=== PATIENT | male | born 1935 | race Caucasian/White ===

== ENCOUNTER 2016-08-15 09:00 | Outpatient (RCR) | payer MEDICARE, BC ==
[~2016-08-15 09:00] MED LIST: 00186-0370-20 IH; ALBUTEROL0.83 MG/ML IH; BIPAP; COUMADIN 2MG2 MG/TAB PO; COUMADIN5 M1 PO; COUMADIN5 MG PO; DAPSONE 100MG100 MG PO; DOXYCYCLINE 10100 MG PO; FLECAINIDE150 MG PO; FLONASEALLERGY NS; INCRUSE EL62.5 MCG/A IH; LOPRESSOR 225 MG/TAB PO; MULTAQ400 MG PO; NASONEX SPRAY17 GM NS; OMNICEF 300MG300 MG PO; PACERONE200 MG PO; PAIN RELIEF AD200 MG PO; PAXIL10 MG PO; PAXIL20 MG PO; PLAQUENIL 200M200 MG PO; PREDFORTE10ML; PREDNISONE10 MG PO; PROAIR HFA0.09 MG/AC IH; RT SPIRIVA18 MCG IH; SPIRIVA18 MCG IH; SYNTHROID0.088 MG/T PO; TOPROL XL 50MG50 MG PO; TOPROL XL25 MG PO; TYLENOL COLD MU; ULTRAM 50MG TAB50 MG PO; UROXATRAL10 M1 PO
[2016-09-09] MEDS ORDERED: NEXIUM 40MG40 MG PO (11:01)
[2016-09-09] MEDS ORDERED: OSCAL 500 TAB500 MG PO (11:03)
[2016-09-09] MEDS ORDERED: LEXAPRO 10MG10 MG PO (11:05)
[2016-09-09] MEDS ORDERED: LASIX 40MG TABL40 MG PO (11:05)
== END 2016-09-27 | disposition home or self-care (01) ==
LOC: MKS.ESL.PT
DX: R53.81 Other malaise (principal); Z87.09 Personal history of other diseases of the respiratory system
CPT/HCPCS: G8978-GP; G8979-GP

== ENCOUNTER 2016-09-09 09:44 | Emergency (ER) | payer MEDICARE, BC ==
[2009-07-22 16:28] VITALS: BP 107/82
[~2016-09-09] VITALS: Ht 180.3 cm; Wt 81.8 kg
[2016-09-09 10:40] LABS: HEMATOCRIT 38.2 % (42.0-52.0); HEMOGLOBIN 12.4 g/dl (13.5-18.0); MEAN CELL VOLUME 111 fl (80.0-100.0); MEAN CORPUSCULAR HEMOGLOBIN 36 pg (27.0-31.0); MEAN CORPUSCULAR HGB CONC 33 g/dl (33.0-37.0); PLATELET COUNT 234 K/mm3 (130-400); RED BLOOD COUNT 3.45 M/mm3 (4.20-5.60); REDCELL DISTRIBUTION WIDTH-CV 13.8 % (11.5-14.5); WHITE BLOOD COUNT 8.7 K/mm3 (4.8-10.8)
[2016-09-09 10:51] LABS: INR 2.1 (0.8-3.0); PROTHROMBIN TIME 24.3 SECONDS (9.7-12.8)
[2016-09-09 10:52] LABS: ADD PATHOLOGY DIFF REVIEW NO
[2016-09-09 10:54] LABS: PARTIAL THROMBOPLASTIN TIME 28.5 SECONDS (26.0-37.0)
[2016-09-09 10:59] LABS: ADJUSTED CALCIUM 9.4 mg/dL (8.4-10.2); ALBUMIN 3.8 gm/dL (3.5-5.0); CALCIUM 9.2 mg/dL (8.4-10.2); CREATININE, serum 1.17 mg/dL (0.66-1.25); POTASSIUM 3.8 mmol/L (3.4-5.0); TOTAL PROTEIN 6.3 gm/dL (6.4-8.2)
[2016-09-09] MEDS ORDERED: NEXIUM 40MG40 MG PO (11:01)
[2016-09-09 11:02] LABS: PH 6 (5-8); SQUAMOUS EPITHELIAL None Seen /hpf; URINE APPEARANCE Clear; URINE BACTERIA None Seen /hpf; URINE BILIRUBIN Negative (NEGATIVE); URINE BLOOD 1+ (NEGATIVE); URINE COLOR Straw; URINE GLUCOSE Negative (NEGATIVE); URINE KETONE Negative (NEGATIVE); URINE RBC None Seen /hpf; URINE UROBILINOGEN Negative (NEGATIVE); URINE WBC None Seen /hpf
[2016-09-09] MEDS ORDERED: OSCAL 500 TAB500 MG PO (11:03)
[2016-09-09] MEDS ORDERED: LEXAPRO 10MG10 MG PO (11:05)
[2016-09-09] MEDS ORDERED: LASIX 40MG TABL40 MG PO (11:05)
[2016-09-09 11:40] LABS: BAND 8 % (0-10); BASOPHIL 1 % (0-2); EOSINOPHIL 1 % (0-4); NEUTROPHILS 65 % (42.0-75.2); TOTAL CELLS COUNTED 100
[2016-09-09 11:40] LABS: INFLUENZA B NEGATIVE
[2016-09-09 11:41] LABS: ANISOCYTOSIS 1+; PLATELET ESTIMATE NORMAL (NORMAL); POLYCHROMASIA 1+
[2016-09-09 14:43] LABS: TROPONIN-I 0.027 ng/mL (0.000-0.034)
[2016-09-09 16:20] VITALS: TEMP 98.1
[2016-09-09 19:45] VITALS: BP 122/93; PULSE 130
== END 2016-09-09 20:10 | disposition short-term general hospital (02) ==
LOC: COL.ER 09:44
PROVIDERS: Emergency Medicine
DX: J16.8 Pneumonia due to other specified infectious organisms (principal); I48.0 Paroxysmal atrial fibrillation; R09.02 Hypoxemia; I27.2 Other secondary pulmonary hypertension; J44.9 Chronic obstructive pulmonary disease, unspecified; R94.39 Abnormal result of other cardiovascular function study; J98.6 Disorders of diaphragm; J90 Pleural effusion, not elsewhere classified; R94.31 Abnormal electrocardiogram [ECG] [EKG]; Z87.891 Personal history of nicotine dependence
CPT/HCPCS: J0692; J1160; J1956; J2930; J7030; Q9967

== ENCOUNTER → 2016-10-18 | Outpatient (CLI) | payer MEDICARE, BC ==
[~2016-10-18] MED LIST changes: +ALDACTONE 25MG25 M1 PO; +AMOXICILLIN 8751 TAB PO; +BETAPACE 80MG80 MG PO; +CALCIUM CARB W/1 TA1 PO; +COUMADIN 1MG1 MG/TAB PO; +LASIX 20MG TABL20 MG PO; +LASIX 40MG TABL40 MG PO; +LEXAPRO 10MG10 MG PO; +MAG-OX 400400 MG/TAB PO; +NEXIUM 40MG40 MG PO; +OSCAL 500 TAB500 MG PO; +SYSTANE 0.4%-0.1 SOL OU; +VENTOLIN0.09 MG IH
== END ==
LOC: COL.VAS 13:04
DX: R60.0 Localized edema (principal)

== ENCOUNTER 2016-10-30 14:38 | Emergency (ER) | payer MEDICARE, BC ==
[2009-07-22 16:28] VITALS: BP 107/82
[~2016-10-30] VITALS: Ht 180.3 cm; Wt 78.6 kg
[~2016-10-30 14:38] MED LIST changes: -ALDACTONE 25MG25 M1 PO; -AMOXICILLIN 8751 TAB PO; -BETAPACE 80MG80 MG PO; -CALCIUM CARB W/1 TA1 PO; -COUMADIN 1MG1 MG/TAB PO; -LASIX 20MG TABL20 MG PO; -MAG-OX 400400 MG/TAB PO; -SYSTANE 0.4%-0.1 SOL OU; -VENTOLIN0.09 MG IH
[2016-10-30 14:46] VITALS: TEMP 97.7
[2016-10-30 15:55] LABS: MEAN CELL VOLUME 100 fl (80.0-100.0); MEAN CORPUSCULAR HGB CONC 32 g/dl (33.0-37.0); MEAN PLATELET VOLUME 8.9 fl (7.4-10.4); PLATELET COUNT 379 K/mm3 (130-400); RED BLOOD COUNT 2.98 M/mm3 (4.20-5.60); REDCELL DISTRIBUTION WIDTH-CV 13.8 % (11.5-14.5); WHITE BLOOD COUNT 8.8 K/mm3 (4.8-10.8)
[2016-10-30 15:56] LABS: HEMATOCRIT 29.8 % (42.0-52.0); HEMOGLOBIN 9.4 g/dl (13.5-18.0); MEAN CORPUSCULAR HEMOGLOBIN 32 pg (27.0-31.0)
[2016-10-30 15:57] LABS: ADD PATHOLOGY DIFF REVIEW NO
[2016-10-30 16:02] LABS: PROTHROMBIN TIME 36.5 SECONDS (9.7-12.8)
[2016-10-30 16:05] LABS: PARTIAL THROMBOPLASTIN TIME 37.8 SECONDS (26.0-37.0)
[2016-10-30 16:10] LABS: INR 3.2 (0.8-3.0)
[2016-10-30 16:16] LABS: ADJUSTED CALCIUM 9.3 mg/dL (8.4-10.2); C-REACTIVE PROTEIN 6.8 mg/dL (0.0-0.9); CALCIUM 8.5 mg/dL (8.4-10.2); CREATININE, serum 1.1 mg/dL (0.66-1.25); POTASSIUM 4.2 mmol/L (3.4-5.0); TOTAL PROTEIN 5.5 gm/dL (6.4-8.2)
[2016-10-30 16:29] LABS: BAND 8 % (0-10); EOSINOPHIL 4 % (0-4); NEUTROPHILS 62 % (42.0-75.2); TOTAL CELLS COUNTED 100
[2016-10-30 16:30] LABS: PLATELET ESTIMATE NORMAL (NORMAL)
[2016-10-30] MEDS ORDERED: AMOXICILLIN 8751 TAB PO (16:35)
[2016-10-30] MEDS ORDERED: MAG-OX 400400 MG/TAB PO (16:36)
[2016-10-30] MEDS ORDERED: BETAPACE 80MG80 MG PO (16:36)
[2016-10-30] MEDS ORDERED: ALDACTONE 25MG25 M1 PO (16:37)
[2016-10-30] MEDS ORDERED: VENTOLIN0.09 MG IH (16:39)
[2016-10-30] MEDS ORDERED: CALCIUM CARB W/1 TA1 PO (16:39)
[2016-10-30] MEDS ORDERED: SYSTANE 0.4%-0.1 SOL OU (16:41)
[2016-10-30] MEDS ORDERED: COUMADIN 1MG1 MG/TAB PO (16:43)
[2016-10-30 17:09] VITALS: BP 112/70; PULSE 54
[2016-10-30 17:24] LABS: TROPONIN-I 0.15 ng/mL (0.000-0.034)
== END 2016-10-30 17:28 | disposition home or self-care (01) ==
LOC: COL.ER 14:38
PROVIDERS: Emergency Medicine
DX: I48.91 Unspecified atrial fibrillation (principal); R06.00 Dyspnea, unspecified; R00.1 Bradycardia, unspecified; I10 Essential (primary) hypertension; J44.9 Chronic obstructive pulmonary disease, unspecified

== ENCOUNTER → 2017-01-01 | Outpatient (CLI) | payer MEDICARE, BC ==
[~2017-01-01] MED LIST changes: +ALDACTONE 25MG25 M1 PO; +AMOXICILLIN 8751 TAB PO; +BETAPACE 80MG80 MG PO; +CALCIUM CARB W/1 TA1 PO; +COUMADIN 1MG1 MG/TAB PO; +LASIX 20MG TABL20 MG PO; +MAG-OX 400400 MG/TAB PO; +SYSTANE 0.4%-0.1 SOL OU; +VENTOLIN0.09 MG IH
== END ==
LOC: COL.VAS 10:09
DX: I08.1 Rheumatic disorders of both mitral and tricuspid valves (principal); I28.8 Other diseases of pulmonary vessels; I27.2 Other secondary pulmonary hypertension

== ENCOUNTER → 2017-01-08 | Outpatient (CLI) | payer MEDICARE, BC | LOC: COL.RAD 09:55 | DX: J44.9 Chronic obstructive pulmonary disease, unspecified (principal); J90 Pleural effusion, not elsewhere classified | CPT/HCPCS: A9539; A9540 ==

== ENCOUNTER 2017-01-17 09:33 | Emergency (ER) | payer MEDICARE, BC ==
[2009-07-22 16:28] VITALS: BP 107/82
[~2017-01-17] VITALS: Ht 180.3 cm; Wt 73.6 kg
[~2017-01-17 09:33] MED LIST changes: -LASIX 20MG TABL20 MG PO
[2017-01-17 09:41] VITALS: TEMP 98
[2017-01-17 10:18] LABS: MEAN CELL VOLUME 83 fl (80.0-100.0); MEAN CORPUSCULAR HGB CONC 31 g/dl (33.0-37.0); MEAN PLATELET VOLUME 8.5 fl (7.4-10.4); PLATELET COUNT 479 K/mm3 (130-400); RED BLOOD COUNT 3.84 M/mm3 (4.20-5.60); REDCELL DISTRIBUTION WIDTH-CV 16.3 % (11.5-14.5); WHITE BLOOD COUNT 13.9 K/mm3 (4.8-10.8)
[2017-01-17 10:19] LABS: ADD PATHOLOGY DIFF REVIEW NO; HEMOGLOBIN 9.9 g/dl (13.5-18.0); MEAN CORPUSCULAR HEMOGLOBIN 26 pg (27.0-31.0)
[2017-01-17 10:29] LABS: ADJUSTED CALCIUM 9.5 mg/dL (8.4-10.2); ALBUMIN 3.4 gm/dL (3.5-5.0); BILIRUBIN,TOTAL 1.2 mg/dL (0.0-1.0); CREATININE, serum 0.96 mg/dL (0.66-1.25); POTASSIUM 4.2 mmol/L (3.4-5.0); TOTAL PROTEIN 6.4 gm/dL (6.4-8.2)
[2017-01-17 10:47] LABS: BAND 6 % (0-10); EOSINOPHIL 2 % (0-4); NEUTROPHILS 70 % (42.0-75.2); TOTAL CELLS COUNTED 100
[2017-01-17 10:48] LABS: ANISOCYTOSIS 1+
[2017-01-17 10:49] LABS: PLATELET ESTIMATE INCREASED (NORMAL)
[2017-01-17 10:53] LABS: ARTERIAL BLD GAS O2 SATURATION 94.5 % (92-100); ARTERIAL BLD GAS TCO2 CT 22.1; ARTERIAL BLOOD GAS BASE EXCESS -1.5 (-2-2); ARTERIAL BLOOD GAS HCO3 21.2 meq/L (22-26); ARTERIAL BLOOD GAS PO2 68.6 mmHg (80-100); ARTERIAL BLOOD GAS pH 7.48 (7.35-7.45); OXYHEMOGLOBIN 93.9 %
[2017-01-17 10:54] LABS: ALLEN TEST YES; ALLENS TEST RESULT PASS; ATS? YES
[2017-01-17] MEDS ORDERED: ALBUTEROL0.83 MG/ML IH (11:02)
[2017-01-17] MEDS ORDERED: NASONEX SPRAY17 GM NS (11:13)
[2017-01-17 19:07] VITALS: BP 112/61; PULSE 66
== END 2017-01-17 19:20 | disposition short-term general hospital (02) ==
LOC: COL.ER 09:33
PROVIDERS: Family Medicine
DX: J18.1 Lobar pneumonia, unspecified organism (principal); I50.1 Left ventricular failure, unspecified; J44.9 Chronic obstructive pulmonary disease, unspecified; I48.91 Unspecified atrial fibrillation; I27.2 Other secondary pulmonary hypertension; Z87.891 Personal history of nicotine dependence; Z79.01 Long term (current) use of anticoagulants; Z96.641 Presence of right artificial hip joint; Z98.890 Other specified postprocedural states
CPT/HCPCS: J0456; J0692; J2930; J7030; J7050

== ENCOUNTER 2017-03-22 09:29 | Emergency (ER) | payer MEDICARE, BC ==
[2009-07-22 16:28] VITALS: BP 107/82
[~2017-03-22] VITALS: Ht 180.3 cm; Wt 68.6 kg
[2017-03-22 09:42] VITALS: TEMP 97.9
[2017-03-22 11:30] LABS: BASO % 0.4 % (0.0-2.0); EOS # 0.4 (0.0-0.7); GRAN # 4.9 (1.4-6.5); GRAN % 64.3 % (42.2-75.2); LYMPH % 12.5 % (20.0-51.0); MEAN CELL VOLUME 85 fl (80.0-100.0); MEAN CORPUSCULAR HGB CONC 31 g/dl (33.0-37.0); MEAN PLATELET VOLUME 9.4 fl (7.4-10.4); MONO # 1.3 (0.1-0.6); MONO % 17.3 % (1.7-9.3); PLATELET COUNT 243 K/mm3 (130-400); RED BLOOD COUNT 4.31 M/mm3 (4.20-5.60); WHITE BLOOD COUNT 7.6 K/mm3 (4.8-10.8)
[2017-03-22 11:34] LABS: HEMATOCRIT 36.6 % (42.0-52.0); HEMOGLOBIN 11.3 g/dl (13.5-18.0); MEAN CORPUSCULAR HEMOGLOBIN 26 pg (27.0-31.0)
[2017-03-22 11:39] LABS: PROTHROMBIN TIME 23.2 SECONDS (9.7-12.8)
[2017-03-22 11:40] LABS: PARTIAL THROMBOPLASTIN TIME 32.3 SECONDS (26.0-37.0)
[2017-03-22 11:46] LABS: ADJUSTED CALCIUM 9.1 mg/dL (8.4-10.2); ALBUMIN 3.8 gm/dL (3.5-5.0); BILIRUBIN,TOTAL 0.6 mg/dL (0.0-1.0); C-REACTIVE PROTEIN 1.3 mg/dL (0.0-0.9); CALCIUM 8.9 mg/dL (8.4-10.2); CREATININE, serum 1.12 mg/dL (0.66-1.25); POTASSIUM 4.4 mmol/L (3.4-5.0); TOTAL PROTEIN 6.8 gm/dL (6.4-8.2)
[2017-03-22] MEDS ORDERED: DOXYCYCLINE 10100 MG PO (12:44)
[2017-03-22 12:45] LABS: ERYTHROCYTE SEDIMENTATION RATE 14 mm/hr (0-30)
[2017-03-22 13:25] VITALS: BP 124/80; PULSE 58
[2017-03-22] MEDS ORDERED: LASIX 20MG TABL20 MG PO (14:38)
[2017-03-22] MEDS ORDERED: INCRUSE EL62.5 MCG/A IH (14:45)
== END 2017-03-22 13:25 | disposition home or self-care (01) ==
LOC: COL.ER 09:29
PROVIDERS: Emergency Medicine
DX: L03.114 Cellulitis of left upper limb (principal); I48.91 Unspecified atrial fibrillation; F32.9 Major depressive disorder, single episode, unspecified; J44.9 Chronic obstructive pulmonary disease, unspecified; Z79.01 Long term (current) use of anticoagulants

== ENCOUNTER 2017-06-12 07:05 | Day surgery (SDC) | payer MEDICARE, BC ==
[2009-07-22 16:28] VITALS: BP 107/82
[~2017-06-12] VITALS: Ht 180.3 cm; Wt 70.9 kg
[~2017-06-12 07:05] MED LIST changes: +LASIX 20MG TABL20 MG PO
[2017-06-12] MEDS ORDERED: OXYGEN MC (07:36)
[2017-06-12 07:44] VITALS: BP 102/67; PULSE 54; TEMP 97.2
[2017-06-12 09:10] VITALS: BP 103/67; PULSE 54; TEMP 97.9
[2017-06-12 09:25] VITALS: BP 112/66; PULSE 52
[2017-06-12 09:40] VITALS: BP 116/54; PULSE 54
[2017-06-12 09:55] VITALS: BP 123/71; PULSE 54
== END 2017-06-12 10:10 | disposition home or self-care (01) ==
LOC: SDCO 07:05
DX: D12.2 Benign neoplasm of ascending colon (principal); D12.4 Benign neoplasm of descending colon; D12.5 Benign neoplasm of sigmoid colon; K57.30 Diverticulosis of large intestine without perforation or abscess without bleeding; K64.0 First degree hemorrhoids; J44.9 Chronic obstructive pulmonary disease, unspecified; I48.91 Unspecified atrial fibrillation; M19.90 Unspecified osteoarthritis, unspecified site; G47.33 Obstructive sleep apnea (adult) (pediatric); I27.20 Pulmonary hypertension, unspecified; E03.9 Hypothyroidism, unspecified; F32.9 Major depressive disorder, single episode, unspecified; Z87.891 Personal history of nicotine dependence
CPT/HCPCS: OP; J2250; J2704; J7120

== ENCOUNTER 2017-08-02 12:26 | Observation (INO) | payer MEDICARE, BC ==
[2017-08-02] VITALS (412 sets, daily range): BP systolic 94–102; BP diastolic 63–79; PULSE 68–130; TEMP 97.3–97.5; O2SAT 83–99
[~2017-08-02] VITALS: Ht 180.3 cm; Wt 69.8 kg
[~2017-08-02 12:26] MED LIST changes: +OXYGEN MC
[2017-08-02 13:19] LABS: CALCIUM 9.5 mg/dL (8.4-10.2); CREATININE, serum 1.46 mg/dL (0.66-1.25); MAGNESIUM 1.9 mg/dL (1.6-2.3); POTASSIUM 4.7 mmol/L (3.4-5.0)
[2017-08-02 16:32] LABS: BASO # 0.1 (0.0-0.2); BASO % 1.5 % (0.0-2.0); EOS # 0.3 (0.0-0.7); EOS % 3.8 % (0-4.0); GRAN % 59.3 % (42.2-75.2); HEMATOCRIT 38.9 % (42.0-52.0); HEMOGLOBIN 12.2 g/dl (13.5-18.0); LYMPH # 1.8 (1.2-3.4); LYMPH % 20.8 % (20.0-51.0); MEAN CELL VOLUME 87 fl (80.0-100.0); MEAN CORPUSCULAR HEMOGLOBIN 27 pg (27.0-31.0); MEAN CORPUSCULAR HGB CONC 31 g/dl (33.0-37.0); MEAN PLATELET VOLUME 10.4 fl (7.4-10.4); MONO # 1.2 (0.1-0.6); MONO % 14.5 % (1.7-9.3); PLATELET COUNT 297 K/mm3 (130-400); RED BLOOD COUNT 4.48 M/mm3 (4.20-5.60); WHITE BLOOD COUNT 8.5 K/mm3 (4.8-10.8)
[2017-08-02 16:49] LABS: TROPONIN-I 0.031 ng/mL (0.000-0.034)
[2017-08-02 16:50] LABS: PROTHROMBIN TIME 35.3 SECONDS (9.7-12.8)
[2017-08-02 17:08] LABS: TSH w REFLEX 0.568 uIU/mL (0.465-4.680)
[2017-08-03] VITALS (570 sets, daily range): BP systolic 89–109; BP diastolic 59–87; PULSE 62–109; TEMP 97.4–97.9; O2SAT 88–100
[2017-08-03 06:00] LABS: CALCIUM 8.9 mg/dL (8.4-10.2); CREATININE, serum 1.24 mg/dL (0.66-1.25); MAGNESIUM 1.9 mg/dL (1.6-2.3); POTASSIUM 4.6 mmol/L (3.4-5.0)
[2017-08-03 06:12] LABS: TROPONIN-I 0.025 ng/mL (0.000-0.034)
[2017-08-03] MEDS ORDERED: COUMADIN 3MG3 MG/TAB PO (11:38)
[2017-08-03] MEDS ORDERED: COUMADIN 2MG2 MG/TAB PO (11:38)
== END 2017-08-03 13:30 | disposition home or self-care (01) ==
LOC: ICU 12:26
PROVIDERS: Internal Medicine; Physician Assistant
DX: I48.0 Paroxysmal atrial fibrillation (principal); I48.92 Unspecified atrial flutter; C73 Malignant neoplasm of thyroid gland; E87.1 Hypo-osmolality and hyponatremia; J44.9 Chronic obstructive pulmonary disease, unspecified; G47.33 Obstructive sleep apnea (adult) (pediatric); I27.20 Pulmonary hypertension, unspecified; K21.9 Gastro-esophageal reflux disease without esophagitis; F32.9 Major depressive disorder, single episode, unspecified; J18.8 Other pneumonia, unspecified organism; Z79.01 Long term (current) use of anticoagulants; Z96.642 Presence of left artificial hip joint; Z82.49 Family history of ischemic heart disease and other diseases of the circulatory system
CPT/HCPCS: 99222-AI; G0378; G0379; J2250; J2704; J7030; J7050

== ENCOUNTER 2017-12-19 11:37 | Inpatient (IN) | payer MEDICARE, BC ==
[~2017-12-19] VITALS: Ht 180.3 cm; Wt 73.0 kg
[2017-12-19] VITALS (9 sets, daily range): BP systolic 120–155; BP diastolic 72–85; PULSE 59–71; TEMP 97.9–98.1
[~2017-12-19 11:37] MED LIST changes: +COUMADIN 3MG3 MG/TAB PO
[2017-12-19] MEDS ORDERED: COUMADIN 2MG2 MG/TAB PO (12:44)
[2017-12-19] MEDS ORDERED: COUMADIN 1MG1 MG/TAB PO (12:45)
[2017-12-19] MEDS ORDERED: SYSTANE BALANCE10 M1 OP (12:47)
[2017-12-19] MEDS ORDERED: OXYGEN MC (12:48)
[2017-12-19] MEDS ORDERED: VENTOLIN0.09 MG IH (12:49)
[2017-12-19] MEDS ORDERED: URECHOLINE 25MG25 MG PO (12:50)
[2017-12-19] MEDS ORDERED: 00186-0370-20 IH (12:51)
[2017-12-19] MEDS ORDERED: CALCIUM 600MG+D1 TAB PO (12:52)
[2017-12-19] MEDS ORDERED: FLONASEALLERGY NS (12:54)
[2017-12-19 15:56] LABS: ALBUMIN 3.7 gm/dL (3.5-5.0); CALCIUM 9.3 mg/dL (8.4-10.2); PHOSPHOROUS 3.1 mg/dL (2.5-4.5)
[2017-12-20 00:43] VITALS: BP 128/76; PULSE 82; TEMP 98.1
[2017-12-20 05:02] VITALS: BP 130/77; PULSE 73
[2017-12-20 06:51] LABS: ALBUMIN 3.3 gm/dL (3.5-5.0); CALCIUM 9.2 mg/dL (8.4-10.2); PHOSPHOROUS 3.9 mg/dL (2.5-4.5)
[2017-12-20 11:44] VITALS: BP 92/53; PULSE 71; TEMP 98.3
[2017-12-20 12:21] VITALS: BP 107/68; PULSE 73
[2017-12-20 16:16] LABS: ALBUMIN 3.3 gm/dL (3.5-5.0); CALCIUM 9.4 mg/dL (8.4-10.2)
[2017-12-20 16:46] VITALS: BP 119/60; PULSE 75; TEMP 98.2
== END 2017-12-20 19:01 | disposition home or self-care (01) | DRG 627 ==
LOC: INPTSU 11:37 → SURG 11:37
PROVIDERS: Otolaryngology
PROC: 0GTG0ZZ Resection of Left Thyroid Gland Lobe, Open Approach (ICD-10-PCS; principal; 2017-12-19 13:30)
DX: C73 Malignant neoplasm of thyroid gland (principal); J44.9 Chronic obstructive pulmonary disease, unspecified
CPT/HCPCS: J1100; J2370; J2405; J2704; J3010; J7120

== ENCOUNTER 2018-02-04 07:20 | Inpatient (IN) | payer MEDICARE, BC ==
[~2018-02-04] VITALS: Ht 180.3 cm; Wt 74.9 kg
[~2018-02-04 07:20] MED LIST changes: +CALCIUM 600MG+D1 TAB PO; +SYNTHROID0.1 MG/TAB PO; +SYSTANE BALANCE10 M1 OP; +URECHOLINE 25MG25 MG PO
[2018-02-04 07:53] LABS: INR 1.2 (0.8-3.0); PROTHROMBIN TIME 13.2 SECONDS (9.7-12.8)
[2018-02-04 07:55] LABS: ALANINE AMINOTRANSFERASE 30 U/L (21-72); ALBUMIN 3.9 gm/dL (3.5-5.0); ALKALINE PHOSPHATASE 78 U/L (50-136); ANION GAP 8 mmol/L (7-16); AST,SGOT 24 U/L (15-37); BILIRUBIN,TOTAL 0.6 mg/dL (0.0-1.0); BLOOD UREA NITROGEN 19 mg/dL (9-20); CALCIUM 8.8 mg/dL (8.4-10.2); CARBON DIOXIDE 27 mmol/L (22-30); CHLORIDE 95 mmol/L (98-107); CREATININE, serum 1.13 mg/dL (0.66-1.25); GLUCOSE 111 mg/dL (74-106); POTASSIUM 4.3 mmol/L (3.4-5.0); SODIUM 131 mmol/L (137-145); TOTAL PROTEIN 7.4 gm/dL (6.4-8.2)
[2018-02-04 08:08] LABS: TROPONIN-I < 0.012 ng/mL (0.000-0.034)
[2018-02-04 08:25] LABS: BAND 48 % (0-10); LYMPHOCYTE 15 % (20.0-51.0); NEUTROPHILS 29 % (42.0-75.2); PLATELET ESTIMATE NORMAL (NORMAL)
[2018-02-04 08:33] LABS: BASO # 0.1 (0.0-0.2); BASO % 0.6 % (0.0-2.0); EOS # 0.1 (0.0-0.7); EOS % 0.6 % (0-4.0); GRAN # 9.5 (1.4-6.5); GRAN % 76.8 % (42.2-75.2); HEMATOCRIT 38.5 % (42.0-52.0); HEMOGLOBIN 12.5 g/dl (13.5-18.0); LYMPH # 0.8 (1.2-3.4); LYMPH % 6.1 % (20.0-51.0); MEAN CELL VOLUME 85 fl (80.0-100.0); MEAN CORPUSCULAR HEMOGLOBIN 28 pg (27.0-31.0); MEAN CORPUSCULAR HGB CONC 33 g/dl (33.0-37.0); MEAN PLATELET VOLUME 9.8 fl (7.4-10.4); MONO # 1.9 (0.1-0.6); MONO % 15.5 % (1.7-9.3); PLATELET COUNT 291 K/mm3 (130-400); RED BLOOD COUNT 4.52 M/mm3 (4.20-5.60); REDCELL DISTRIBUTION WIDTH-CV 15.9 % (11.5-14.5)
[2018-02-04 16:06] VITALS: BP 153/76; PULSE 77; TEMP 99
[2018-02-04 19:56] VITALS: BP 150/86; PULSE 92; TEMP 101
[2018-02-04 20:55] VITALS: TEMP 98.6
[2018-02-05] VITALS (14 sets, daily range): BP systolic 89–158; BP diastolic 62–89; PULSE 54–144; TEMP 96.7–100.3; O2SAT 92–95
[2018-02-05 08:32] LABS: HEMOGLOBIN 11.5 g/dl (13.5-18.0); MEAN CELL VOLUME 85 fl (80.0-100.0); MEAN CORPUSCULAR HEMOGLOBIN 28 pg (27.0-31.0); MEAN CORPUSCULAR HGB CONC 33 g/dl (33.0-37.0); MEAN PLATELET VOLUME 10.1 fl (7.4-10.4); PLATELET COUNT 242 K/mm3 (130-400); RED BLOOD COUNT 4.16 M/mm3 (4.20-5.60); REDCELL DISTRIBUTION WIDTH-CV 16.1 % (11.5-14.5)
[2018-02-05 08:39] LABS: HEMATOCRIT 35.3 % (42.0-52.0); INR 1.2 (0.8-3.0); PROTHROMBIN TIME 13.7 SECONDS (9.7-12.8)
[2018-02-05 10:04] LABS: BAND 19 % (0-10); EOSINOPHIL 1 % (0-4); LYMPHOCYTE 13 % (20.0-51.0); NEUTROPHILS 63 % (42.0-75.2); PLATELET ESTIMATE NORMAL (NORMAL)
[2018-02-05 10:05] LABS: ANISOCYTOSIS 1+
[2018-02-06] VITALS (695 sets, daily range): BP systolic 87–129; BP diastolic 67–79; PULSE 56–129; TEMP 96.7–98.3; O2SAT 79–100
[2018-02-06 05:38] LABS: GRAN # 6.2 (1.4-6.5); GRAN % 76.4 % (42.2-75.2); HEMOGLOBIN 10.4 g/dl (13.5-18.0); LYMPH # 0.7 (1.2-3.4); MEAN CELL VOLUME 87 fl (80.0-100.0); MEAN CORPUSCULAR HEMOGLOBIN 28 pg (27.0-31.0); MEAN CORPUSCULAR HGB CONC 32 g/dl (33.0-37.0); MEAN PLATELET VOLUME 9.5 fl (7.4-10.4); MONO # 1.2 (0.1-0.6); MONO % 14.1 % (1.7-9.3); PLATELET COUNT 207 K/mm3 (130-400); RED BLOOD COUNT 3.78 M/mm3 (4.20-5.60); REDCELL DISTRIBUTION WIDTH-CV 16.6 % (11.5-14.5)
[2018-02-06 05:41] LABS: INR 1.2 (0.8-3.0); PROTHROMBIN TIME 14.1 SECONDS (9.7-12.8)
[2018-02-06 05:45] LABS: HEMATOCRIT 32.9 % (42.0-52.0)
[2018-02-06 05:51] LABS: CALCIUM 8.9 mg/dL (8.4-10.2); CREATININE, serum 1.09 mg/dL (0.66-1.25); POTASSIUM 4.6 mmol/L (3.4-5.0)
[2018-02-07 04:10] VITALS: BP 132/75; PULSE 60; TEMP 97.5
[2018-02-07 06:42] LABS: BASO % 0.2 % (0.0-2.0); GRAN # 8.8 (1.4-6.5); LYMPH # 0.8 (1.2-3.4); LYMPH % 7.2 % (20.0-51.0); MEAN CELL VOLUME 87 fl (80.0-100.0); MEAN CORPUSCULAR HEMOGLOBIN 28 pg (27.0-31.0); MEAN CORPUSCULAR HGB CONC 32 g/dl (33.0-37.0); MEAN PLATELET VOLUME 9.7 fl (7.4-10.4); MONO % 8.9 % (1.7-9.3); PLATELET COUNT 238 K/mm3 (130-400); RED BLOOD COUNT 3.63 M/mm3 (4.20-5.60); REDCELL DISTRIBUTION WIDTH-CV 16.5 % (11.5-14.5)
[2018-02-07 06:43] LABS: HEMATOCRIT 31.6 % (42.0-52.0)
[2018-02-07 06:53] LABS: CALCIUM 8.9 mg/dL (8.4-10.2); CREATININE, serum 0.98 mg/dL (0.66-1.25); POTASSIUM 4.7 mmol/L (3.4-5.0)
[2018-02-07 06:57] LABS: INR 1.6 (0.8-3.0); PROTHROMBIN TIME 17.9 SECONDS (9.7-12.8)
[2018-02-07 07:27] VITALS: BP 134/88; PULSE 66; TEMP 98.1
[2018-02-07 11:24] VITALS: BP 147/81; PULSE 59; TEMP 97.4
[2018-02-07] MEDS ORDERED: OMNICEF 300MG300 MG PO (12:14)
[2018-02-07] MEDS ORDERED: TUSS PO (12:17)
[2018-02-07] MEDS ORDERED: PREDNISONE20 MG PO (12:17)
[2018-02-07] MEDS ORDERED: TESSALON P100 MG/CAP PO (12:36)
[2018-02-07] MEDS ORDERED: LOVENOX 8080 MG/0.8 SQ (13:24)
[2018-02-08 00:32] LABS: .THYROGLOBULIN ANTIBODIES <3 IU/mL (0-5)
[2018-02-09 14:19] LABS: THYROGLOBULIN AB SCREEN <1.8 IU/mL (<4.0); THYROGLOBULIN TUMOR MARKER 1.3 ng/mL (())
== END 2018-02-07 14:00 | disposition home or self-care (01) | DRG 871 ==
LOC: COL.ER 07:20 → MEDICAL 09:40 → ICU 02-05 23:33 → MEDICAL 02-06 15:11
PROVIDERS: Family Medicine; Hospitalist; Otolaryngology
PROC: 5A2204Z Restoration of Cardiac Rhythm, Single (ICD-10-PCS; principal; 2018-02-06)
DX: A41.9 Sepsis, unspecified organism (principal); J18.9 Pneumonia, unspecified organism; J44.0 Chronic obstructive pulmonary disease with (acute) lower respiratory infection; J44.1 Chronic obstructive pulmonary disease with (acute) exacerbation; J96.11 Chronic respiratory failure with hypoxia; C73 Malignant neoplasm of thyroid gland; I48.91 Unspecified atrial fibrillation; I27.20 Pulmonary hypertension, unspecified; Z79.01 Long term (current) use of anticoagulants; Z87.891 Personal history of nicotine dependence
CPT/HCPCS: 99223-AI; 99232-AI; 99233-AI; G0103; J0282; J0696; J1160; J1644; J1650; J1956; J2704; J7030; J7060; J7512; Q9967

== ENCOUNTER 2018-12-18 16:19 | Inpatient (IN) | payer MEDICARE, BC ==
[~2018-12-18] VITALS: Ht 180.3 cm; Wt 81.4 kg
[~2018-12-18 16:19] MED LIST changes: +CARDIZEM CD360 MG PO; +CORDARONE200 MG/TAB PO; +LOVENOX 8080 MG/0.8 SQ; +PREDNISONE20 MG PO; +TESSALON P100 MG/CAP PO; +TUSS PO
[2018-12-18 16:58] LABS: BASO # 0.1 (0.0-0.2); BASO % 0.8 % (0.0-2.0); EOS # 0.2 (0.0-0.7); GRAN # 8.8 (1.4-6.5); GRAN % 74.1 % (42.2-75.2); HEMOGLOBIN 10.2 g/dl (13.5-18.0); LYMPH # 1.1 (1.2-3.4); LYMPH % 8.9 % (20.0-51.0); MEAN CELL VOLUME 88 fl (80.0-100.0); MEAN CORPUSCULAR HEMOGLOBIN 27 pg (27.0-31.0); MEAN CORPUSCULAR HGB CONC 31 g/dl (33.0-37.0); MEAN PLATELET VOLUME 9.3 fl (7.4-10.4); MONO # 1.7 (0.1-0.6); MONO % 13.9 % (1.7-9.3); PLATELET COUNT 301 K/mm3 (130-400); RED BLOOD COUNT 3.76 M/mm3 (4.20-5.60); REDCELL DISTRIBUTION WIDTH-CV 17.8 % (11.5-14.5)
[2018-12-18] MEDS ORDERED: CARDIZEM CD 12120 MG PO (16:59)
[2018-12-18] MEDS ORDERED: SYNTHROID0.125 MG/T PO (17:00)
[2018-12-18] MEDS ORDERED: COUMADIN 1MG1 MG/TAB PO (17:04)
[2018-12-18] MEDS ORDERED: LIPITOR 40MG TA40 MG PO (17:06)
[2018-12-18 17:09] LABS: ALANINE AMINOTRANSFERASE 30 U/L (21-72); ALBUMIN 3.6 gm/dL (3.5-5.0); ALKALINE PHOSPHATASE 102 U/L (50-136); ANION GAP 6 mmol/L (7-16); AST,SGOT 39 U/L (15-37); BILIRUBIN,TOTAL 0.9 mg/dL (0.0-1.0); BLOOD UREA NITROGEN 28 mg/dL (9-20); CALCIUM 8.7 mg/dL (8.4-10.2); CARBON DIOXIDE 25 mmol/L (22-30); CHLORIDE 105 mmol/L (98-107); CREATININE, serum 1.42 (0.66-1.25); GLUCOSE 101 mg/dL (74-106); LIPASE 44 U/L (23-300); POTASSIUM 4.4 mmol/L (3.4-5.0); SODIUM 136 mmol/L (137-145); TOTAL PROTEIN 6.9 gm/dL (6.4-8.2)
[2018-12-18] MEDS ORDERED: CORDARONE200 MG/TAB PO (17:09)
[2018-12-18 17:10] LABS: INR 3.2 (0.8-3.0); PROTHROMBIN TIME 36.4 SECONDS (9.7-12.8)
[2018-12-18] MEDS ORDERED: NEXIUM 40MG40 MG PO (17:11)
[2018-12-18 17:23] LABS: TROPONIN-I < 0.012 ng/mL (0.000-0.035)
[2018-12-18] MEDS ORDERED: ZITHROMAX 250M250 MG PO (19:16)
[2018-12-18] MEDS ORDERED: PREDNISONE10 MG PO (19:16)
--- NOTE | 2018-12-18 23:10 | NUR ---
PT ARRIVED FROM ER VIA GURNEY AND WAS ACCOMPANIED BY . PT HAD MED LIST THAT HE KEEPS TRACK OF PERSONALLY. WENT OVER MED DOMINIQUE WITH PT PERSONALLY AND HE WAS ABLE TO DISCLOSE WHAT HIS MEDICATIONS ARE AND TIMES. PT SLEEPS WITH CPAP AT NIGHT WITH OXYGEN. PT DENIES PAIN OR DISCOMFORT AT THIS TIME, RESP EVEN AND UNLABORED WITH A LITTLE SOB. PT ADVISES WHEN HE IS STANDING HE HAS NO SOB BUT LAYING DOWN HE HAS A LITTLE SOB. PT HAS O2 AT 3L/NC, WHEN HOME TO GET CPAP AND CHECK SYNTHROID MEDICATION FOR DOSAGE. NO FURTHER NEEDS AT THIS TIME CALL LIGHT WITHIN REACH.
--- NOTE | 2018-12-18 23:16 | NUR ---
OFFERED TO SEE ABOUT GETTING A BREATHING TREATMENT AND PT DECLINED.
[2018-12-18 23:27] VITALS: BP 139/68; PULSE 71; TEMP 98.4
--- NOTE | 2018-12-19 00:09 | NUR ---
TT CHEYENNE NOE AND ADVISED PT WANTS TO TAKE HIS NIGHT TIME MEDS, LIPITOR AND CARDIZEM. CHEYENNE NOE ADVISED TO GO AHEAD AND GIVE THOSE MEDICATIONS NOW AND WILL RESTART IN AM.
--- NOTE | 2018-12-19 01:08 | NUR ---
PT'S HOME DOSE OF CARDIZEM IS 120 MG PO. UPDATED AND GIVEN CORRECT DOSE. PT WANTED TO MAKE SURE HE RECEIVED HIS NIGHT MEDICATIONS AND THEY WERE GIVEN DIRECTED. GIVEN PER CHEYENNE NOE.
--- NOTE | 2018-12-19 02:36 | NUR ---
PT IN BED LAYING FLAT, AT BEDSIDE. PT REQUESTED THAT NOT TO BE AWAKEN FOR ANYTHING UNTIL 0600 AND IF HE HAS ANY NEEDS HE WILL CALL US. CALL LIGHT WITHIN REACH.
[2018-12-19 07:04] LABS: MEAN CELL VOLUME 90 fl (80.0-100.0); MEAN CORPUSCULAR HGB CONC 30 g/dl (33.0-37.0); MEAN PLATELET VOLUME 9.8 fl (7.4-10.4); PLATELET COUNT 299 K/mm3 (130-400); RED BLOOD COUNT 3.59 M/mm3 (4.20-5.60); REDCELL DISTRIBUTION WIDTH-CV 17.8 % (11.5-14.5)
[2018-12-19 07:06] LABS: HEMATOCRIT 32.2 % (42.0-52.0); HEMOGLOBIN 9.7 g/dl (13.5-18.0); MEAN CORPUSCULAR HEMOGLOBIN 27 pg (27.0-31.0)
--- NOTE | 2018-12-19 07:06 | NUR ---
PT ADVISED THAT HE HAD GOTTEN SOME GO SLEEP DURING THE NIGHT AND HE FEELS SO MUCH BETTER. NO NEEDS AT THIS TIME. CALL LIGHT WITHIN REACH AND CARE GIVEN TO NAS MARTIN.
[2018-12-19 07:07] LABS: INR 3.2 (0.8-3.0); PROTHROMBIN TIME 36.4 SECONDS (9.7-12.8)
[2018-12-19 07:24] LABS: CALCIUM 8.8 mg/dL (8.4-10.2); CREATININE, serum 1.22 (0.66-1.25); POTASSIUM 4.7 mmol/L (3.4-5.0)
[2018-12-19 07:34] LABS: ANISOCYTOSIS 1+; BAND 1 % (0-10); BASOPHIL 1 % (0-2); LYMPHOCYTE 4 % (20.0-51.0); NEUTROPHILS 93 % (42.0-75.2); PLATELET ESTIMATE NORMAL (NORMAL)
[2018-12-19 07:52] VITALS: BP 112/67; PULSE 66; TEMP 97.9
--- NOTE | 2018-12-19 09:05 | NUR ---
TEAM ROUNDING COMPLETE, PLAN ON DISCHARGE TO [facility] LATER TODAY SKIP MINER BLASTING SETTING UP TRANSFER.
[2018-12-19] MEDS ORDERED: COUMADIN 1MG1 MG/TAB PO (11:25)
[2018-12-19] MEDS ORDERED: PREDNISONE10 MG PO (11:46)
[2018-12-19 12:34] VITALS: BP 119/63; PULSE 73; TEMP 97.6
[2018-12-19] MEDS ORDERED: CLEOCIN HCL300 MG PO (12:40)
--- NOTE | 2018-12-19 13:27 | NUR ---
STEPHANY fisher met with the patient and his close friend to discuss discharge planning. The patient lives in [place] with his , Ria. The patient reports independence with ADLs and has a walker that he used when he got his hip replaced a few years ago but doesn't currently use. The patients PCP is Dr. Starr Motley and he gets his medications from [facility]. The patient reports no difficulties obtaining his medications. The patient does not have DPOA-HC in EMR but reports he has one completed at home. The patient plans to return home with family and friend support upon discharge. The patient reports the doctor said he could possibly discharge today, 12/19. No additional needs at this time.
--- NOTE | 2018-12-19 14:25 | NUR ---
PT MAINTAINING 02 SATS @89%.
--- NOTE | 2018-12-19 16:05 | NUR ---
DISCHARGE INSTRUCTIONS PROVIDED TO PATEINT AND SPOUSE, QUESTIONS ANSWERED, PT ESCORTED TO FRONT BY STAFF.
== END 2018-12-19 16:17 | disposition home or self-care (01) | DRG 190 ==
LOC: COL.ER 16:19 → MEDICAL 21:40
PROVIDERS: Emergency Medicine; Nurse Practitioner; ADMIT Family Medicine
DX: J44.1 Chronic obstructive pulmonary disease with (acute) exacerbation (principal); J18.9 Pneumonia, unspecified organism; N17.9 Acute kidney failure, unspecified; J96.11 Chronic respiratory failure with hypoxia; J44.0 Chronic obstructive pulmonary disease with (acute) lower respiratory infection; I48.91 Unspecified atrial fibrillation; I27.20 Pulmonary hypertension, unspecified; G47.33 Obstructive sleep apnea (adult) (pediatric); K21.9 Gastro-esophageal reflux disease without esophagitis; E03.9 Hypothyroidism, unspecified; Z85.850 Personal history of malignant neoplasm of thyroid; Z87.891 Personal history of nicotine dependence
CPT/HCPCS: 99222-AI; J0696; J2930; J7030; J7512; Q9967

== ENCOUNTER 2019-03-18 10:30 | Outpatient (RCR) | payer MEDICARE, BC ==
[2009-07-22 16:28] VITALS: BP 107/82
[2019-03-17 09:22] VITALS: BP 110/62; PULSE 63; TEMP 98.1
[~2019-03-18] VITALS: Ht 180.3 cm; Wt 76.0 kg
[2019-03-18 10:24] VITALS: BP 106/68; PULSE 72; TEMP 98.2
[~2019-03-18 10:30] MED LIST changes: +CARDIZEM CD 12120 MG PO; +CLEOCIN HCL300 MG PO; +LIPITOR 40MG TA40 MG PO; +PACERONE100 MG PO; +SYNTHROID 0.10.15 MG PO; +SYNTHROID0.125 MG/T PO; +ZITHROMAX 250M250 MG PO
== END 2019-03-19 13:44 | disposition home or self-care (01) ==
LOC: EUO 10:30
DX: C73 Malignant neoplasm of thyroid gland (principal)
CPT/HCPCS: J3240

== ENCOUNTER → 2019-03-21 | Outpatient (CLI) | payer MEDICARE, BC | LOC: COL.LAB 11:10 | PROVIDERS: Otolaryngology | DX: C73 Malignant neoplasm of thyroid gland (principal) ==

== ENCOUNTER 2019-06-03 11:32 | Emergency (ER) | payer MEDICARE, BC ==
[2009-07-22 16:28] VITALS: BP 107/82
[~2019-06-03] VITALS: Ht 180.3 cm; Wt 72.7 kg
[2019-06-03 11:37] VITALS: TEMP 97.4
[2019-06-03 12:01] LABS: INR 3.2 (0.8-3.0); PROTHROMBIN TIME 38.4 SECONDS (9.7-12.8)
[2019-06-03 12:02] LABS: HEMATOCRIT 40.3 % (42.0-52.0); HEMOGLOBIN 12.5 g/dl (13.5-18.0); MEAN CELL VOLUME 88 fl (80.0-100.0); MEAN CORPUSCULAR HEMOGLOBIN 27 pg (27.0-31.0); MEAN CORPUSCULAR HGB CONC 31 g/dl (33.0-37.0); MEAN PLATELET VOLUME 8.9 fl (7.4-10.4); PLATELET COUNT 346 K/mm3 (130-400); REDCELL DISTRIBUTION WIDTH-CV 15.4 % (11.5-14.5)
[2019-06-03 12:14] LABS: ALANINE AMINOTRANSFERASE 23 U/L (21-72); ALBUMIN 4.1 gm/dL (3.5-5.0); ALKALINE PHOSPHATASE 67 U/L (50-136); ANION GAP 9 mmol/L (7-16); AST,SGOT 63 U/L (15-37); BILIRUBIN,TOTAL 0.4 mg/dL (0.0-1.0); BLOOD UREA NITROGEN 32 mg/dL (9-20); CALCIUM 8.7 mg/dL (8.4-10.2); CARBON DIOXIDE 25 mmol/L (22-30); CHLORIDE 101 mmol/L (98-107); GLUCOSE 96 mg/dL (74-106); POTASSIUM 4.5 mmol/L (3.4-5.0); SODIUM 135 mmol/L (137-145); TOTAL PROTEIN 7.4 gm/dL (6.4-8.2)
[2019-06-03 12:19] LABS: EOSINOPHIL 4 % (0-4); LYMPHOCYTE 16 % (20.0-51.0); METAMYELOCYTE 1 % (0-0); NEUTROPHILS 66 % (42.0-75.2); OVALOCYTES 1+; PLATELET ESTIMATE NORMAL (NORMAL)
[2019-06-03 12:26] LABS: TROPONIN-I < 0.012 ng/mL (0.000-0.035)
[2019-06-03 13:06] VITALS: BP 115/75; PULSE 79
== END 2019-06-03 13:07 | disposition home or self-care (01) ==
LOC: COL.ER 11:32
PROVIDERS: Emergency Medicine
DX: I48.92 Unspecified atrial flutter (principal); J44.9 Chronic obstructive pulmonary disease, unspecified; K21.9 Gastro-esophageal reflux disease without esophagitis; Z87.891 Personal history of nicotine dependence; Z79.01 Long term (current) use of anticoagulants; Z79.51 Long term (current) use of inhaled steroids
CPT/HCPCS: J7030

== ENCOUNTER 2020-10-23 12:26 | Emergency (ER) | payer MEDICARE, BC ==
[2009-07-22 16:28] VITALS: BP 107/82
[~2020-10-23] VITALS: Ht 180.3 cm; Wt 74.1 kg
[2020-10-23 12:33] VITALS: BP 113/70; TEMP 98.6
[2020-10-23] MEDS ORDERED: TOPROL XL 25MG25 MG PO (13:43)
[2020-10-23] MEDS ORDERED: LASIX 40MG TABL40 MG PO (13:44)
[2020-10-23] MEDS ORDERED: ELIQUIS 2.5 PO (13:45)
[2020-10-23] MEDS ORDERED: ALBUTEROL0.83 MG/ML IH (13:45)
[2020-10-23] MEDS ORDERED: INCRUSE EL62.5 MCG/A (13:48)
[2020-10-23] MEDS ORDERED: REVATIO20 MG PO (13:50)
[2020-10-23 15:14] LABS: BASO # 0.1 (0.0-0.2); BASO % 0.6 % (0.0-2.0); EOS # 0.2 (0.0-0.7); EOS % 2.3 % (0-4.0); GRAN # 5.5 (1.4-6.5); GRAN % 65.9 % (42.2-75.2); HEMOGLOBIN 11.3 g/dl (13.5-18.0); LYMPH # 1.3 (1.2-3.4); MEAN CELL VOLUME 98 fl (80.0-100.0); MEAN CORPUSCULAR HEMOGLOBIN 30 pg (27.0-31.0); MEAN CORPUSCULAR HGB CONC 31 g/dl (33.0-37.0); MEAN PLATELET VOLUME 8.9 fl (7.4-10.4); MONO # 1.3 (0.1-0.6); MONO % 15.6 % (1.7-9.3); PLATELET COUNT 311 K/mm3 (130-400); RED BLOOD COUNT 3.76 M/mm3 (4.20-5.60); REDCELL DISTRIBUTION WIDTH-CV 14.1 % (11.5-14.5)
[2020-10-23 15:17] LABS: HEMATOCRIT 36.9 % (42.0-52.0)
[2020-10-23 15:21] LABS: INR 1.4 (0.8-3.0); PROTHROMBIN TIME 16.2 SECONDS (9.7-12.8)
[2020-10-23 15:41] VITALS: PULSE 63
== END 2020-10-23 15:42 | disposition home or self-care (01) ==
LOC: COL.ER 12:26
PROVIDERS: Nurse Practitioner
DX: S90.31XA Contusion of right foot, initial encounter (principal); I48.91 Unspecified atrial fibrillation; Z79.01 Long term (current) use of anticoagulants; Z88.2 Allergy status to sulfonamides; Z87.891 Personal history of nicotine dependence; Z79.51 Long term (current) use of inhaled steroids; W20.8XXA Other cause of strike by thrown, projected or falling object, initial encounter

== ENCOUNTER 2021-05-11 17:57 | Emergency (ER) | payer MEDICARE, BC ==
[~2021-05-11] VITALS: Ht 177.8 cm; Wt 77.0 kg
[~2021-05-11 17:57] MED LIST changes: +ELIQUIS 2.5 PO; +INCRUSE EL62.5 MCG/A; +REVATIO20 MG PO; +TOPROL XL 25MG25 MG PO
[2021-05-11 19:59] LABS: BASO # 0.1 (0.0-0.2); BASO % 0.5 % (0.0-2.0); EOS % 0.1 % (0-4.0); GRAN # 9.7 (1.4-6.5); GRAN % 85.6 % (42.2-75.2); HEMOGLOBIN 11.1 g/dl (13.5-18.0); LYMPH # 0.5 (1.2-3.4); LYMPH % 4.6 % (20.0-51.0); MEAN CELL VOLUME 92 fl (80.0-100.0); MEAN CORPUSCULAR HEMOGLOBIN 29 pg (27.0-31.0); MEAN CORPUSCULAR HGB CONC 32 g/dl (33.0-37.0); MEAN PLATELET VOLUME 9.2 fl (7.4-10.4); MONO % 8.8 % (1.7-9.3); PLATELET COUNT 320 K/mm3 (130-400); REDCELL DISTRIBUTION WIDTH-CV 15.9 % (11.5-14.5)
[2021-05-11 20:04] LABS: HEMATOCRIT 35.1 % (42.0-52.0)
[2021-05-11 20:14] LABS: ALBUMIN 4.2 gm/dL (3.5-5.0); BILIRUBIN,TOTAL 1.6 mg/dL (0.0-1.0); CALCIUM 9.1 mg/dL (8.4-10.2); CREATININE, serum 1.19 (0.66-1.25); POTASSIUM 4.1 mmol/L (3.4-5.0); TOTAL PROTEIN 7.3 gm/dL (6.4-8.2)
[2021-05-11 20:18] VITALS: BP 127/83; PULSE 86; TEMP 98.4
[2021-05-11 20:24] LABS: TROPONIN-I 0.027 ng/mL (0.000-0.035)
[2021-05-11] MEDS ORDERED: PREDNISONE20 MG PO (21:54)
== END 2021-05-11 22:18 | disposition home or self-care (01) ==
LOC: COL.ER 17:57
PROVIDERS: Personal Emergency Response Attendant
DX: J44.1 Chronic obstructive pulmonary disease with (acute) exacerbation (principal); I48.91 Unspecified atrial fibrillation; Z85.850 Personal history of malignant neoplasm of thyroid; Z79.01 Long term (current) use of anticoagulants; Z79.51 Long term (current) use of inhaled steroids; Z79.899 Other long term (current) drug therapy
CPT/HCPCS: J7512; Q9967

== ENCOUNTER 2021-07-28 11:30 | Emergency (ER) | payer MEDICARE, BC ==
[~2021-07-28] VITALS: Ht 180.3 cm; Wt 75.0 kg
[2021-07-28 12:07] VITALS: TEMP 97.2
[2021-07-28 12:51] LABS: BASO # 0.1 K/mm3 (0.0-0.2); BASO % 0.6 % (0.0-2.0); EOS # 0.1 K/mm3 (0.0-0.7); GRAN # 7.8 K/mm3 (1.4-6.5); GRAN % 76.5 % (42.2-75.2); HEMOGLOBIN 10.2 g/dl (13.5-18.0); LYMPH # 0.8 K/mm3 (1.2-3.4); MEAN CELL VOLUME 95 fl (80.0-100.0); MEAN CORPUSCULAR HEMOGLOBIN 29 pg (27.0-31.0); MEAN CORPUSCULAR HGB CONC 31 g/dl (33.0-37.0); MEAN PLATELET VOLUME 9.2 fl (7.4-10.4); MONO # 1.4 K/mm3 (0.1-0.6); MONO % 13.6 % (1.7-9.3); PLATELET COUNT 236 K/mm3 (130-400); RED BLOOD COUNT 3.53 M/mm3 (4.20-5.60); REDCELL DISTRIBUTION WIDTH-CV 16.8 % (11.5-14.5)
[2021-07-28 12:52] LABS: HEMATOCRIT 33.4 % (42.0-52.0)
[2021-07-28 12:59] LABS: INR 4.1 (0.8-3.0)
[2021-07-28 13:07] LABS: ALBUMIN 3.3 gm/dL (3.4-4.8); BILIRUBIN,TOTAL 0.9 mg/dL (0.2-1.2); C-REACTIVE PROTEIN 3.01 mg/dL (0.00-0.50); CALCIUM 8.5 mg/dL (8.4-10.2); CREATININE, serum 1.08 mg/dL (0.72-1.25); POTASSIUM 4.6 mmol/L (3.5-4.5); TOTAL PROTEIN 5.7 gm/dL (6.2-8.1)
[2021-07-28 13:14] LABS: ERYTHROCYTE SEDIMENTATION RATE 18 mm/hr (0-30); PROTHROMBIN TIME 46.4 SECONDS (9.7-12.8)
[2021-07-28] MEDS ORDERED: LIDODERM 5% PATC1 EA TP (13:31)
[2021-07-28 13:36] VITALS: BP 118/83; PULSE 85
== END 2021-07-28 13:40 | disposition home or self-care (01) ==
LOC: COL.ER 11:30
PROVIDERS: Emergency Medicine
DX: M25.551 Pain in right hip (principal); R79.82 Elevated C-reactive protein (CRP); J44.9 Chronic obstructive pulmonary disease, unspecified; I48.91 Unspecified atrial fibrillation; Z96.642 Presence of left artificial hip joint; Z79.01 Long term (current) use of anticoagulants; Z79.899 Other long term (current) drug therapy

== ENCOUNTER 2021-07-31 06:30 | Emergency (ER) | payer MEDICARE, BC ==
[~2021-07-31] VITALS: Ht 180.3 cm; Wt 75.0 kg
[~2021-07-31 06:30] MED LIST changes: +LIDODERM 5% PATC1 EA TP
[2021-07-31 06:53] VITALS: TEMP 97.5
[2021-07-31 08:09] LABS: MEAN CELL VOLUME 92 fl (80.0-100.0); MEAN CORPUSCULAR HGB CONC 32 g/dl (33.0-37.0); PLATELET COUNT 257 K/mm3 (130-400); RED BLOOD COUNT 3.31 M/mm3 (4.20-5.60)
[2021-07-31 08:13] LABS: HEMATOCRIT 30.6 % (42.0-52.0); HEMOGLOBIN 9.7 g/dl (13.5-18.0); MEAN CORPUSCULAR HEMOGLOBIN 29 pg (27.0-31.0)
[2021-07-31 08:24] LABS: ALBUMIN 3.2 gm/dL (3.4-4.8); BILIRUBIN,TOTAL 1.3 mg/dL (0.2-1.2); CALCIUM 8.4 mg/dL (8.4-10.2); CREATININE, serum 0.97 mg/dL (0.72-1.25); POTASSIUM 4.3 mmol/L (3.5-4.5); TOTAL PROTEIN 5.9 gm/dL (6.2-8.1)
[2021-07-31 08:51] LABS: EOSINOPHIL 4 % (0-4); LYMPHOCYTE 16 % (20.0-51.0); NEUTROPHILS 71 % (42.0-75.2)
[2021-07-31 08:52] LABS: ANISOCYTOSIS 1+; HYPOCHROMIA 2+; PLATELET ESTIMATE NORMAL (NORMAL)
[2021-07-31 08:53] LABS: SCHISTOCYTES 1+
[2021-07-31] MEDS ORDERED: LASIX 20MG TABL20 MG PO (12:06)
[2021-07-31] MEDS ORDERED: PREDNISONE10 MG PO (12:06)
[2021-07-31] MEDS ORDERED: ZITHROMAX500 M2 PO (12:06)
[2021-07-31 12:25] VITALS: BP 125/94; PULSE 92
[2021-08-01 07:41] LABS: PATHOLOGY DIFF REVIEW OK
== END 2021-07-31 12:25 | disposition home or self-care (01) ==
LOC: COL.ER 06:30
PROVIDERS: Student in an Organized Health Care Education/Training Program
DX: M25.551 Pain in right hip (principal); R91.1 Solitary pulmonary nodule
CPT/HCPCS: J7040; Q9967

== ENCOUNTER 2021-09-16 19:27 | Emergency (ER) | payer MEDICARE, BC ==
[~2021-09-16] VITALS: Ht 180.3 cm; Wt 73.6 kg
[~2021-09-16 19:27] MED LIST changes: +ZITHROMAX500 M2 PO
[2021-09-16 19:46] VITALS: BP 112/81; PULSE 80; TEMP 98.1
[2021-09-16] MEDS ORDERED: VOLTAREN GEL 1%1 TU TP (21:21)
== END 2021-09-16 21:40 | disposition home or self-care (01) ==
LOC: COL.ER 19:27
DX: M25.561 Pain in right knee (principal); I10 Essential (primary) hypertension; I48.91 Unspecified atrial fibrillation; Z96.651 Presence of right artificial knee joint; Z79.01 Long term (current) use of anticoagulants; Z79.899 Other long term (current) drug therapy

== ENCOUNTER 2021-12-04 22:20 | Inpatient (IN) | payer MEDICARE, BC ==
[~2021-12-04] VITALS: Ht 180.3 cm; Wt 75.1 kg
[~2021-12-04 22:20] MED LIST changes: +VOLTAREN GEL 1%1 TU TP
[2021-12-04 23:02] LABS: MEAN CELL VOLUME 90 fl (80.0-100.0); MEAN CORPUSCULAR HGB CONC 30 g/dl (33.0-37.0); MEAN PLATELET VOLUME 9.2 fl (7.4-10.4); PLATELET COUNT 254 K/mm3 (130-400); RED BLOOD COUNT 3.56 M/mm3 (4.20-5.60); REDCELL DISTRIBUTION WIDTH-CV 15.1 % (11.5-14.5)
[2021-12-04 23:04] LABS: HEMATOCRIT 31.9 % (42.0-52.0); HEMOGLOBIN 9.7 g/dl (13.5-18.0); MEAN CORPUSCULAR HEMOGLOBIN 27 pg (27-31)
[2021-12-04 23:20] LABS: ALBUMIN 3.9 gm/dL (3.4-4.8); BILIRUBIN,TOTAL 1.1 mg/dL (0.2-1.2); CALCIUM 9.1 mg/dL (8.4-10.2); CREATININE, serum 1.45 mg/dL (0.72-1.25); POTASSIUM 4.4 mmol/L (3.5-4.5); TOTAL PROTEIN 6.7 gm/dL (6.2-8.1)
[2021-12-04 23:26] LABS: ANISOCYTOSIS 1+; BAND 4 % (0-10); EOSINOPHIL 2 % (0-4); HYPOCHROMIA 3+; LYMPHOCYTE 12 % (20.0-51.0); NEUTROPHILS 67 % (42.0-75.2); PLATELET ESTIMATE NORMAL (NORMAL); TROPONIN-I 0.02 ng/mL (0.00-0.033)
[2021-12-04 23:27] LABS: OVALOCYTES 2+
[2021-12-04 23:28] LABS: SCHISTOCYTES 1+
[2021-12-05] VITALS (7 sets, daily range): BP systolic 93–123; BP diastolic 54–76; PULSE 78–92; TEMP 97.5–99
[2021-12-05 02:17] LABS: ARTERIAL BLD GAS O2 SATURATION 93.9 % (92-100); ARTERIAL BLD GAS TCO2 CT 20.2; ARTERIAL BLOOD GAS BASE EXCESS -4.6 (-2-2); ARTERIAL BLOOD GAS HCO3 19.2 meq/L (22-26); ARTERIAL BLOOD GAS PCO2 31.2 mmHg (35-45); ARTERIAL BLOOD GAS PO2 68.7 mmHg (80-100); ARTERIAL BLOOD GAS pH 7.41 (7.35-7.45)
[2021-12-05] MEDS ORDERED: SYNTHROID0.125 MG/T PO (02:20)
[2021-12-05] MEDS ORDERED: PROTONIX 40MG T40 MG PO (02:24)
[2021-12-05] MEDS ORDERED: COUMADIN 2MG2 MG/TAB PO (02:26)
[2021-12-05] MEDS ORDERED: TYLENOL 500MG500 MG PO (02:32)
[2021-12-05 03:27] LABS: MEAN CELL VOLUME 89 fl (80.0-100.0); MEAN CORPUSCULAR HGB CONC 31 g/dl (33.0-37.0); MEAN PLATELET VOLUME 9.4 fl (7.4-10.4); PLATELET COUNT 238 K/mm3 (130-400); RED BLOOD COUNT 3.31 M/mm3 (4.20-5.60)
[2021-12-05 03:29] LABS: HEMATOCRIT 29.6 % (42.0-52.0); HEMOGLOBIN 9.1 g/dl (13.5-18.0); MEAN CORPUSCULAR HEMOGLOBIN 27 pg (27-31)
[2021-12-05 03:34] LABS: PROTHROMBIN TIME 22.8 SECONDS (9.7-12.8)
[2021-12-05 03:52] LABS: ANISOCYTOSIS 1+; HYPOCHROMIA 3+; LYMPHOCYTE 2 % (20.0-51.0); NEUTROPHILS 96 % (42.0-75.2); PLATELET ESTIMATE NORMAL (NORMAL)
[2021-12-05 03:53] LABS: OVALOCYTES 2+
[2021-12-05 03:54] LABS: SCHISTOCYTES 1+
[2021-12-05 04:05] LABS: CALCIUM 8.5 mg/dL (8.4-10.2); CREATININE, serum 1.33 mg/dL (0.72-1.25); MAGNESIUM 1.6 mg/dL (1.6-2.6); POTASSIUM 4.2 mmol/L (3.5-4.5)
[2021-12-06] VITALS (7 sets, daily range): BP systolic 93–112; BP diastolic 56–82; PULSE 82–101; TEMP 97.3–98.3
[2021-12-06 06:22] LABS: BASO % 0.1 % (0.0-2.0); GRAN % 89.2 % (42.2-75.2); LYMPH # 0.6 K/mm3 (1.2-3.4); LYMPH % 3.8 % (20.0-51.0); MEAN CELL VOLUME 89 fl (80.0-100.0); MEAN CORPUSCULAR HGB CONC 31 g/dl (33.0-37.0); MEAN PLATELET VOLUME 9.7 fl (7.4-10.4); MONO # 0.9 K/mm3 (0.1-0.6); MONO % 5.9 % (1.7-9.3); PLATELET COUNT 254 K/mm3 (130-400); RED BLOOD COUNT 3.12 M/mm3 (4.20-5.60); REDCELL DISTRIBUTION WIDTH-CV 15.2 % (11.5-14.5)
[2021-12-06 06:26] LABS: HEMATOCRIT 27.7 % (42.0-52.0); HEMOGLOBIN 8.5 g/dl (13.5-18.0); MEAN CORPUSCULAR HEMOGLOBIN 27 pg (27-31)
[2021-12-06 06:35] LABS: CALCIUM 8.6 mg/dL (8.4-10.2); CREATININE, serum 1.1 mg/dL (0.72-1.25); POTASSIUM 4.2 mmol/L (3.5-4.5)
[2021-12-07 04:45] VITALS: BP 134/76; PULSE 91; TEMP 97.4
[2021-12-07 06:56] LABS: MEAN CELL VOLUME 89 fl (80.0-100.0); MEAN CORPUSCULAR HGB CONC 31 g/dl (33.0-37.0); MEAN PLATELET VOLUME 9.8 fl (7.4-10.4); PLATELET COUNT 274 K/mm3 (130-400); RED BLOOD COUNT 3.13 M/mm3 (4.20-5.60); REDCELL DISTRIBUTION WIDTH-CV 15.3 % (11.5-14.5)
[2021-12-07 07:01] LABS: HEMATOCRIT 27.9 % (42.0-52.0); HEMOGLOBIN 8.7 g/dl (13.5-18.0); MEAN CORPUSCULAR HEMOGLOBIN 28 pg (27-31)
[2021-12-07 07:03] LABS: CALCIUM 8.3 mg/dL (8.4-10.2); CREATININE, serum 1.03 mg/dL (0.72-1.25); POTASSIUM 4.2 mmol/L (3.5-4.5)
[2021-12-07 07:08] LABS: INR 2.9 (0.8-3.0); PROTHROMBIN TIME 32.6 SECONDS (9.7-12.8)
[2021-12-07 07:35] LABS: ANISOCYTOSIS 1+; BAND 2 % (0-10); HYPOCHROMIA 2+; LYMPHOCYTE 3 % (20.0-51.0); NEUTROPHILS 94 % (42.0-75.2); PLATELET ESTIMATE NORMAL (NORMAL)
[2021-12-07 07:36] LABS: OVALOCYTES 2+
[2021-12-07 08:04] VITALS: BP 119/84; PULSE 82; TEMP 97.1
[2021-12-07] MEDS ORDERED: LASIX 20MG TABL20 MG PO (10:46)
[2021-12-07] MEDS ORDERED: MONODOX100 PO (10:48)
[2021-12-07] MEDS ORDERED: PREDNISONE20 MG PO (10:51)
[2021-12-07] MEDS ORDERED: OMNICEF 300MG300 MG PO (10:52)
[2021-12-07 11:18] VITALS: BP 105/68; PULSE 81; TEMP 97.7
== END 2021-12-07 12:05 | disposition home or self-care (01) | DRG 189 ==
LOC: COL.ER 22:20 → MEDICAL 12-05 00:05
PROVIDERS: Emergency Medicine; Physician Assistant; Student in an Organized Health Care Education/Training Program; ADMIT Internal Medicine
DX: J96.01 Acute respiratory failure with hypoxia (principal); J44.1 Chronic obstructive pulmonary disease with (acute) exacerbation; R65.10 Systemic inflammatory response syndrome (SIRS) of non-infectious origin without acute organ dysfunction; N17.9 Acute kidney failure, unspecified; I48.91 Unspecified atrial fibrillation; I27.20 Pulmonary hypertension, unspecified; E78.5 Hyperlipidemia, unspecified; G47.33 Obstructive sleep apnea (adult) (pediatric); K21.9 Gastro-esophageal reflux disease without esophagitis; F32.A Depression, unspecified; E03.9 Hypothyroidism, unspecified; I08.1 Rheumatic disorders of both mitral and tricuspid valves; D72.829 Elevated white blood cell count, unspecified; T38.0X5A Adverse effect of glucocorticoids and synthetic analogues, initial encounter; Z96.642 Presence of left artificial hip joint; Z85.850 Personal history of malignant neoplasm of thyroid; Z79.01 Long term (current) use of anticoagulants
CPT/HCPCS: 99223-AI; 99233-AI; 99239; J0696; J2920; J2930; J7030; Q9967

== ENCOUNTER 2022-02-14 11:56 | Emergency (ER) | payer MEDICARE, BC ==
[~2022-02-14] VITALS: Ht 180.3 cm; Wt 75.0 kg
[~2022-02-14 11:56] MED LIST changes: +MONODOX100 PO; +PROTONIX 40MG T40 MG PO; +TYLENOL 500MG500 MG PO
[2022-02-14 12:40] VITALS: BP 126/77; PULSE 77; TEMP 97.7
== END 2022-02-14 14:40 | disposition left against medical advice (07) ==
LOC: COL.ER 11:56
DX: S41.112A Laceration without foreign body of left upper arm, initial encounter (principal); S81.012A Laceration without foreign body, left knee, initial encounter; W19.XXXA Unspecified fall, initial encounter

== ENCOUNTER 2022-03-02 20:52 | Emergency (ER) | payer MEDICARE, BC ==
[~2022-03-02] VITALS: Ht 180.3 cm; Wt 70.5 kg
[2022-03-02 21:00] VITALS: TEMP 99.1
[2022-03-02 21:24] LABS: BASO # 0.1 K/mm3 (0.0-0.2); BASO % 0.9 % (0.0-2.0); EOS # 0.1 K/mm3 (0.0-0.7); EOS % 0.7 % (0.0-4.0); GRAN # 9.3 K/mm3 (1.4-6.5); HEMOGLOBIN 10.5 g/dl (13.5-18.0); LYMPH # 1.2 K/mm3 (1.2-3.4); MEAN CELL VOLUME 87 fl (80.0-100.0); MEAN CORPUSCULAR HEMOGLOBIN 28 pg (27-31); MEAN CORPUSCULAR HGB CONC 32 g/dl (33.0-37.0); MEAN PLATELET VOLUME 9.2 fl (7.4-10.4); MONO # 2.5 K/mm3 (0.1-0.6); MONO % 18.7 % (1.7-9.3); PLATELET COUNT 432 K/mm3 (130-400); RED BLOOD COUNT 3.82 M/mm3 (4.20-5.60)
[2022-03-02 21:32] LABS: INR 2.5 (0.8-3.0); PROTHROMBIN TIME 28.9 SECONDS (9.7-12.8)
[2022-03-02 21:43] LABS: COLLECTION METHOD CLEAN CATCH
[2022-03-02 21:48] LABS: ALBUMIN 3.1 gm/dL (3.4-4.8); CREATININE, serum 1.25 mg/dL (0.72-1.25); MAGNESIUM 1.8 mg/dL (1.6-2.6); PHOSPHOROUS 2.5 mg/dL (2.3-4.7); POTASSIUM 4.5 mmol/L (3.5-4.5)
[2022-03-02 21:49] LABS: PH 6 (5-8); SQUAMOUS EPITHELIAL None Seen /hpf (0-10); URINE APPEARANCE Clear (CLEAR/HAZY); URINE BACTERIA None Seen /hpf (NONE SEEN); URINE BILIRUBIN Negative (NEGATIVE); URINE BLOOD 1+ (NEGATIVE); URINE COLOR Yellow (YELLOW); URINE GLUCOSE Negative (NEGATIVE); URINE KETONE Negative (NEGATIVE); URINE LEUKOCYTE ESTERASE Negative (NEGATIVE); URINE NITRATE Negative (NEGATIVE); URINE PROTEIN(semi-quant) 1+ (NEGATIVE); URINE RBC 0-2 /hpf (0-2); URINE UROBILINOGEN Negative (NEGATIVE)
[2022-03-02 21:49] LABS: HEMATOCRIT 33.3 % (42.0-52.0)
[2022-03-02 22:20] LABS: TROPONIN-I 0.023 ng/mL (0.00-0.033)
[2022-03-03] MEDS ORDERED: AMOXICILLIN 8751 TAB PO (01:34)
[2022-03-03] MEDS ORDERED: ZITHROMAX500 M2 PO (01:34)
[2022-03-03 01:42] VITALS: BP 113/72; PULSE 71
== END 2022-03-03 01:45 | disposition home or self-care (01) ==
LOC: COL.ER 20:52
PROVIDERS: Emergency Medicine
DX: J18.9 Pneumonia, unspecified organism (principal); I27.20 Pulmonary hypertension, unspecified; R91.1 Solitary pulmonary nodule; I48.91 Unspecified atrial fibrillation; Z79.01 Long term (current) use of anticoagulants; Z99.81 Dependence on supplemental oxygen; Z88.1 Allergy status to other antibiotic agents; Z20.822 Contact with and (suspected) exposure to COVID-19
CPT/HCPCS: Q9967

== ENCOUNTER → 2022-03-22 | Outpatient (CLI) | payer MEDICARE, BC | LOC: COL.RAD 10:15 | DX: I67.82 Cerebral ischemia (principal); I63.81 Other cerebral infarction due to occlusion or stenosis of small artery; G31.89 Other specified degenerative diseases of nervous system ==

== ENCOUNTER → 2023-06-05 | Outpatient (CLI) | payer MEDICARE, BC ==
[2006-02-15 14:00] VITALS: BP 107/82; PULSE 83; TEMP 97.7
== END ==
LOC: MC.RAD 14:00
DX: N63.41 Unspecified lump in right breast, subareolar (principal)